=== PATIENT | female | born 1980 | race Caucasian/White ===

== ENCOUNTER 2021-10-24 15:03 | Emergency (ER) | payer OTHER ==
[2021-10-24] MEDS ORDERED: NORFLEX 100 MG100 MG PO (21:10)
[2021-10-24] MEDS ORDERED: IBUPROFEN600 MG PO (21:10)
[2021-10-24] MEDS ORDERED: HYDROCODON-ACE1 EAC4 PO (21:11)
== END 2021-10-24 21:23 | disposition home or self-care (01) ==
LOC: ER1 15:03
DX: M84.58XA Pathological fracture in neoplastic disease, other specified site, initial encounter for fracture (principal); C79.51 Secondary malignant neoplasm of bone; Z85.3 Personal history of malignant neoplasm of breast; F17.200 Nicotine dependence, unspecified, uncomplicated
CPT/HCPCS: 72131; 81001; 84703; 99284